=== PATIENT | male | born 1995 | race Caucasian/White ===

== ENCOUNTER 2018-06-03 08:42 | Outpatient (CLI) | payer OTHER ==
--- NOTE | 2018-06-03 12:53 | MRI Report ---
Reason: PARESTHESIA OF SKIN Procedure Date: 06/03/2018 Accession Number: [id number] / [id number] Procedure: MRI - Cervical Spine W/O CPT Code: FULL RESULT: EXAM: MRI CERVICAL SPINE WITHOUT CONTRAST EXAM DATE: 06/03/2018 10:03 AM. CLINICAL HISTORY: Neck pain. COMPARISONS: None. TECHNIQUE: Multiplanar, multisequence T1-weighted and fluid-sensitive sequences of the cervical spine without contrast. Other: None. FINDINGS: There is normal alignment of the cervical spine. There is slight desiccation of the L5-S1 disk space without significant loss of height. There are normal signal intensities demonstrated throughout the cervical spinal cord. The bone marrow signal intensities are normal. The craniocervical junction is normal. C2-C3: There is no significant disk bulge, central or foraminal stenosis. The facets are normal. C3-C4: There is no significant disk bulge, central or foraminal stenosis. The facets are normal. C4-C5: There is no significant disk bulge, central or foraminal stenosis. The facets are normal. C5-C6: There is no significant disk bulge, central or foraminal stenosis. The facets are normal. C6-C7: There is no significant disk bulge, central or foraminal stenosis. The facets are normal. C7-T1: There is no significant disk bulge, central or foraminal stenosis. The facets are normal. IMPRESSION: 1. There is no significant disk bulge, central, or foraminal stenosis throughout the cervical spine. 2. There is minimal desiccation of the C5-C6 disk space without significant loss of height.
== END 2018-06-03 08:43 | disposition home or self-care (01) ==
LOC: DI 08:42
PROVIDERS: ATTEND Family Medicine
DX: R20.2 Paresthesia of skin (principal)
CPT/HCPCS: 72141